=== PATIENT | female | born 1940 | race African-American/Black ===

== ENCOUNTER 2020-11-08 09:42 | Outpatient (AMBR) | payer OTHER, SELFPAY ==
--- NOTE | 2020-11-01 08:30 | PTNOTE_ITS ---
PT OP Initial Eval Patient Information Visit Reasons: leg pain Medical Diagnosis: R26.81 Start of Care: 11/01/20 Date of Onset: 6 weeks ago Initial Assessment Subjective Pt is 80 yr old female here with her dtr for decreased balance and vertigo. The L foot is swollen and she says the L LE is weaker than the R. She has fallen several times and started using the walker regularly about 3 weeks ago. She lives with her dtr who helps her with community mobility. Dtr cooks but pt is independent with dressing, grooming and bathing. 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 Objective B LE ROM: Strength: Knee flexion ArOM: L 80 deg 3-/5 R 115 deg 3-/5 Ankle AROM: L: 5 deg 3-/5 R: 8 deg 3-/5 Gait: unsteady with sway to the L using 4WW Tinetti: Assessment Pt presents with balance impairment and scored high fall risk on the Tinetti gait and balance test. B LE's are weak L>R and she has decreased L ankle DF and knee flexion on that side. Pt has poor single leg balance and she requires hand support with gait and should always use the walker. Pt has high TTP of L ankle and foot to light touch. Hospital notes mention BPPV but pt wasn't tested today for vestibular issues besides turning the head to the sides in standing which didn't affect balance. Closing eyes in standing made balance unsteady. Pt requires skilled therapy in order to improve LE strength and balance with gait and has fair rehab potential. Short Term and Hearing And Speech Assistant Goals 1. Ind with HEP 2. Improved Tinetti score to at least 18/28 3. Improved LE strength to at least 3+/5 B knee extension 4. Improved L DF AROM to at least 8 deg Treatment Plan 1. Manual therapy 2. Therex 3. Modalities as indicated, moist heat, ice, estim 4. Gait training Frequency and Duration 2x a week for 6 weeks Certification Dates: 11/01/20 to 02/05/21 Office Procedures PT Procedures PT Date of Service: 11/01/20 OP PT Eval Mod Complex 30 minutes: Yes
--- NOTE | 2020-11-08 11:29 | PT.ODAYNRPT ---
PT Outpatient Daily Note Date of Service: 11/08/20 OP Daily Note Visit Reasons: leg pain Outpatient Physical Therapy Treatment Date: 11/08/20 Subjective: Pt says she does exercises at home. Her knees hurt and she thinks they are affecting her balance. Objective: See F/S for therex Assessment: B knee pain and dysfunction may be decreasing proprioceptive input and slowing balance reactions. The R knee is in a severe valgus position. Plan: She is leaving on a trip and will return to therapy when she gets back on 11/18. Length of Time (minutes) of Treatment: 30 Minutes Office Procedures PT Procedures PT Date of Service: 11/01/20 OP PT Eval Mod Complex 30 minutes: Yes PT Procedures PT Date of Service: 11/08/20 Therapeutic Exercise 30 minutes: Yes
== END 2020-11-16 23:59 | disposition home or self-care (01) ==
PROVIDERS: PCP Family Medicine; Referring Provider Family Medicine; Visit Provider Registered Nurse
DX: R26.81 Unsteadiness on feet (principal); R53.1 Weakness; R42 Dizziness and giddiness; F17.200 Nicotine dependence, unspecified, uncomplicated
CPT/HCPCS: 97110; 97162

== ENCOUNTER 2020-12-10 08:28 | Outpatient (AMBR) | payer OTHER, SELFPAY ==
--- NOTE | 2020-11-26 12:28 | PT.ODAYNRPT ---
PT Outpatient Daily Note Date of Service: 11/26/20 OP Daily Note Visit Reasons: leg pain Outpatient Physical Therapy Treatment Date: 11/26/20 Subjective: Pt says she is tired and her legs hurt today Objective: See F/S for therex Assessment: Pt able to ambulate with one hand on parallel bars without LOB. She can lunge onto step with good knee flexion to 90 deg with one hand support. Plan: Continue per POC Length of Time (minutes) of Treatment: 30 Minutes Office Procedures PT Procedures PT Date of Service: 11/26/20 Therapeutic Exercise 30 minutes: Yes
--- NOTE | 2020-12-02 09:06 | PT.ODAYNRPT ---
PT Outpatient Daily Note Date of Service: 12/02/20 OP Daily Note Visit Reasons: leg pain Outpatient Physical Therapy Treatment Date: 12/02/20 Subjective: Pt says she is feeling ok today and ready to exercise Objective: See F/S for therex Assessment: Pt able to ambulate with one hand on parallel bars without LOB. She can lunge onto step with good knee flexion to 90 deg with one hand support. Plan: Continue per POC Length of Time (minutes) of Treatment: 30 Minutes Office Procedures PT Procedures PT Date of Service: 12/02/20 Therapeutic Exercise 30 minutes: Yes PT Procedures PT Date of Service: 11/26/20 Therapeutic Exercise 30 minutes: Yes
--- NOTE | 2020-12-05 08:38 | PT.ODAYNRPT ---
PT Outpatient Daily Note Date of Service: 12/05/20 OP Daily Note Visit Reasons: leg pain Outpatient Physical Therapy Treatment Date: 12/05/20 Subjective: Pt is ambulating with a cane and left the walker at home to train her balance and not rely on the walker as much Objective: See F/S for therex Gait training: cane in R hand x7' Assessment: Pt loses balance to the R and backwards directions when she steps forward on R foot. PT changed the cane to be in R hand to support when R foot is fwd which she was able to do after gait training. Plan: Continue per POC Length of Time (minutes) of Treatment: 30 Minutes Office Procedures PT Procedures PT Date of Service: 12/02/20 Therapeutic Exercise 30 minutes: Yes PT Procedures PT Date of Service: 12/05/20 Therapeutic Exercise 30 minutes: Yes PT Procedures PT Date of Service: 11/26/20 Therapeutic Exercise 30 minutes: Yes
--- NOTE | 2020-12-10 16:58 | PT.ODAYNRPT ---
PT Outpatient Daily Note Date of Service: 12/10/20 OP Daily Note Visit Reasons: leg pain Outpatient Physical Therapy Treatment Date: 12/10/20 Subjective: Pt is ambulating with a cane and left the walker at home to train her balance and not rely on the walker as much Objective: See F/S for therex Assessment: Pt loses balance to the R and backwards directions when she steps forward on R foot normally but no LOB today. PT changed the cane to be in R hand to support when R foot is fwd which she was able to do after gait training. Plan: Continue per POC Length of Time (minutes) of Treatment: 30 Minutes Office Procedures PT Procedures PT Date of Service: 12/02/20 Therapeutic Exercise 30 minutes: Yes PT Procedures PT Date of Service: 12/05/20 Therapeutic Exercise 30 minutes: Yes PT Procedures PT Date of Service: 12/10/20 Therapeutic Exercise 30 minutes: Yes PT Procedures PT Date of Service: 11/26/20 Therapeutic Exercise 30 minutes: Yes
== END 2020-12-17 23:59 | disposition home or self-care (01) ==
PROVIDERS: PCP Registered Nurse; Referring Provider Registered Nurse; Visit Provider Registered Nurse
DX: R26.81 Unsteadiness on feet (principal); R53.1 Weakness; R42 Dizziness and giddiness; M79.89 Other specified soft tissue disorders; F17.200 Nicotine dependence, unspecified, uncomplicated; J44.9 Chronic obstructive pulmonary disease, unspecified
CPT/HCPCS: 97110